=== PATIENT | female | born 1975 | race Caucasian/White ===

== ENCOUNTER 2017-08-03 10:35 | Emergency (ER) | payer MEDICAID ==
[~2017-08-03] VITALS: Ht 172.7 cm; Wt 54.0 kg
[2017-08-03 11:07] LABS: Urine WBC None Seen /hpf (0 - 5)
[2017-08-03 11:31] LABS: Urine Bacteria FEW /hpf (None Seen); Urine Blood Negative /uL (Negative); Urine Mucus FEW (None Seen); Urine Specific Gravity 1.035 (1.001-1.035)
[2017-08-03 11:58] LABS: Basophils # (auto) 0 uL; Basophils % (auto) 0.1 % (0.0-2.0); Eosinophils # (auto) 0 uL; Eosinophils % (auto) 0.2 % (0.0-7.0); Hematocrit 40.6 % (36.0-46.0); Lymphocytes # (auto) 1.1 uL; Lymphocytes % (auto) 15.3 % (10.0-50.0); Mean Corpuscular Hgb Conc. 34.5 g/dL (32.0-36.0); Mean Corpuscular Volume 87.2 fL (80.0-100.0); Monocytes # (auto) 0.4 uL; Monocytes % (auto) 5.4 % (0.0-12.0); Neutrophils # (auto) 5.6 uL; Nucleated Red Blood Cells % 0.1 %; Platelet Count (auto) 152 10^3/uL (140-450); Red Blood Cells 4.65 10^6/uL (4.0-5.20); Red Cell Distribution Width 13.5 % (11.8-14.3); White Blood Cell 7.1 10^3/uL (4.4-10.8)
[2017-08-03 12:18] LABS: Albumin 3.6 g/dL (3.4-5.0); BUN/Creatinine Ratio 32.7; Bilirubin, Total 0.3 mg/dL (0.2-1.0); Calcium 8.4 mg/dL (8.5-10.1); Potassium 3.5 mmol/L (3.5-5.1); Total Protein 7.1 g/dL (6.4-8.2)
[2017-08-03 13:13] VITALS: BP 105/54
== END 2017-08-03 14:56 | disposition home or self-care (01) ==
LOC: ER 10:35
DX: J40 Bronchitis, not specified as acute or chronic (principal); J06.9 Acute upper respiratory infection, unspecified
CPT/HCPCS: 36415; 71046; 80053; 81001; 85025; 87804

== ENCOUNTER → 2020-01-27 | Emergency (ER) | payer MEDICAID ==
[~2020-01-27] VITALS: Ht 172.7 cm; Wt 54.0 kg
[~2020-01-27] MED LIST: KETOROLAC TROMETH 30 MG/ML 1ML VIAL IV ONE; ONDANSETRON HCL 4 MG/2 ML VIAL IV ONE; SODIUM CHLORIDE 0.9% 1,000 ML IVB ONE; cefTRIAXone 1GM/50ML D5W 50 ML IV ONE
[2020-01-27 12:52] LABS: Urine Bacteria NONE SEEN /hpf (None Seen); Urine Blood Negative /uL (Negative); Urine Mucus FEW (None Seen); Urine Specific Gravity 1.024 (1.001-1.035); Urine WBC 24 /hpf (0 - 5)
[2020-01-27 13:21] LABS: Basophils # (auto) 0 10 ^3/uL (0-0.2); Basophils % (auto) 0.2 % (0.0-2.0); Eosinophils # (auto) 0 10 ^3/uL (0-0.8); Eosinophils % (auto) 0.1 % (0.0-7.0); Hematocrit 38.2 % (36.0-46.0); Hemoglobin 12.7 g/dL (12.2-16.2); Lymphocytes # (auto) 0.8 10 ^3/uL (0.4-5.4); Lymphocytes % (auto) 10.8 % (10.0-50.0); Mean Corpuscular Hemoglobin 28.7 pg (28.0-32.0); Mean Corpuscular Hgb Conc. 33.4 g/dL (32.0-36.0); Mean Corpuscular Volume 86.1 fL (80.0-100.0); Monocytes # (auto) 0.6 10 ^3/uL (0-1.3); Monocytes % (auto) 7.5 % (0.0-12.0); Neutrophils # (auto) 6.1 10 ^3/uL (1.6-8.6); Neutrophils % (auto) 81.4 % (37.0-80.0); Nucleated Red Blood Cells % 0.1 %; Platelet Count (auto) 237 10^3/uL (140-450); Red Blood Cells 4.43 10^6/uL (4.0-5.20); Red Cell Distribution Width 13.6 % (11.8-14.3); White Blood Cell 7.5 10^3/uL (4.4-10.8)
[2020-01-27 13:35] LABS: Albumin 3.5 g/dL (3.4-5.0); Anion Gap 6 (5-15); Blood Urea Nitrogen 18 mg/dL (7-18); Calcium 8.3 mg/dL (8.5-10.1); Carbon Dioxide 23 mmol/L (21-32); Chloride 110 mmol/L (98-107); Glucose 102 mg/dL (74-106); Lipase 92 U/L (73-393); Magnesium 2.4 mg/dL (1.6-2.6); Potassium 3.5 mmol/L (3.5-5.1); Sodium 139 mmol/L (136-145)
[2020-01-27 13:42] LABS: Alanine Aminotransferase 26 U/L (13-56); Alkaline Phosphatase 37 U/L (45-117); Aspartate Aminotransferase 14 U/L (15-37); Bilirubin, Total 0.7 mg/dL (0.2-1.0); GFR African American 174 mL/min; GFR Non-African American 144 mL/min; Total Protein 6.6 g/dL (6.4-8.2)
[2020-01-27 17:52] VITALS: BP 103/57
== END | disposition home or self-care (01) ==
LOC: ER 11:42
DX: N39.0 Urinary tract infection, site not specified (principal); N20.0 Calculus of kidney; N85.8 Other specified noninflammatory disorders of uterus
CPT/HCPCS: 36415; 71045; 74176; 76830; 76856; 80053; 81001; 81025; 83690; 83735; 84484; 85025; 96361; 96365; 96366; 96375; 96376; 99285; J0696; J1885; J2405

== ENCOUNTER 2022-08-22 10:36 | Emergency (ER) | payer MEDICAID ==
[~2022-08-22] VITALS: Ht 172.7 cm; Wt 54.5 kg
[~2022-08-22 10:36] MED LIST changes: +HYDR-4902 PO; -KETOROLAC TROMETH 30 MG/ML 1ML VIAL IV ONE; -ONDANSETRON HCL 4 MG/2 ML VIAL IV ONE; -SODIUM CHLORIDE 0.9% 1,000 ML IVB ONE; -cefTRIAXone 1GM/50ML D5W 50 ML IV ONE
[2022-08-22 10:40] VITALS: BP 107/70
[2022-08-22 11:28] LABS: Basophils # (auto) 0 10 ^3/uL (0-0.2); Basophils % (auto) 0.7 % (0.0-2.0); Eosinophils # (auto) 0.1 10 ^3/uL (0-0.8); Eosinophils % (auto) 1.6 % (0.0-7.0); Hematocrit 44.2 % (36.0-46.0); Hemoglobin 14.9 g/dL (12.2-16.2); Lymphocytes # (auto) 1.4 10 ^3/uL (0.4-5.4); Lymphocytes % (auto) 25.2 % (10.0-50.0); Mean Corpuscular Hemoglobin 29.1 pg (28.0-32.0); Mean Corpuscular Hgb Conc. 33.8 g/dL (32.0-36.0); Mean Corpuscular Volume 85.9 fL (80.0-100.0); Monocytes # (auto) 0.3 10 ^3/uL (0-1.3); Monocytes % (auto) 5.7 % (0.0-12.0); Neutrophils # (auto) 3.8 10 ^3/uL (1.6-8.6); Neutrophils % (auto) 66.8 % (37.0-80.0); Nucleated Red Blood Cells % 0.1 %; Red Blood Cells 5.14 10^6/uL (4.0-5.20); Red Cell Distribution Width 13.3 % (11.8-14.3); White Blood Cell 5.6 10^3/uL (4.4-10.8)
[2022-08-22 11:44] LABS: INR 1.01 (0.9-1.15); Partial Thromboplastin Time 26.2 sec (24.6-33.4)
[2022-08-22 11:45] LABS: Albumin 3.6 g/dL (3.4-5.0); Calcium 8.5 mg/dL (8.5-10.1); Magnesium 2.4 mg/dL (1.6-2.6); Potassium 4.3 mmol/L (3.5-5.1)
[2022-08-22 11:49] LABS: BUN/Creatinine Ratio 38.2 (10.0-20.0); Bilirubin, Total 0.4 mg/dL (0.2-1.0)
[2022-08-22 11:51] LABS: Urine Bacteria NONE SEEN /hpf (None Seen); Urine Blood Negative /uL (Negative); Urine Mucus FEW (None Seen); Urine Specific Gravity 1.027 (1.001-1.035); Urine WBC 2 /hpf (0 - 5)
[2022-08-22 11:55] LABS: Alcohol, Urine < 3.0 mg/dL (0-10); Amphetamine Screen, Urine NEGATIVE (NEGATIVE); Barbiturate Scree,Urine NEGATIVE (NEGATIVE); Benzodiazephine Screen, Urine NEGATIVE (NEGATIVE); Cannabinoid Screen, Urine NEGATIVE (NEGATIVE); Cocaine Screen, Urine NEGATIVE (NEGATIVE); Opiate Scree,Urine NEGATIVE (NEGATIVE); Phencyclidine Screen, Urine NEGATIVE (NEGATIVE)
== END 2022-08-22 13:51 | disposition home or self-care (01) ==
LOC: ER 10:36
DX: R00.2 Palpitations (principal); Z79.899 Other long term (current) drug therapy
CPT/HCPCS: 36415; 71045; 80053; 80307; 81001; 83735; 83880; 84443; 84484; 85025; 85610; 85730; 93005

== ENCOUNTER 2022-10-25 10:51 | Emergency (ER) | payer MEDICAID ==
[~2022-10-25] VITALS: Ht 172.7 cm; Wt 60.8 kg
[2022-10-25 11:51] VITALS: BP 107/73
[2022-10-25] MEDS ORDERED: IPRATROPIUM BROM 0.5 MG/2.5ML INH SOL NEB ONE (12:30)
[2022-10-25] MEDS ORDERED: DexAMETHasone SOD PHOS 10MG/1ML VIAL INJ IM ONE (12:30)
[2022-10-25] MEDS ORDERED: ALBUTEROL SULF 2.5 MG/0.5ML(0.5%) NEB SOLN NEB ONE (12:30)
[2022-10-25] MEDS ORDERED: PRED20TA2 PO (13:09)
[2022-10-25] MEDS ORDERED: PROM1SOL4 PO (13:09)
[2022-10-25] MEDS ORDERED: ALBU108A5 IN (13:11)
== END 2022-10-25 14:49 | disposition home or self-care (01) ==
LOC: ER 10:51
DX: J40 Bronchitis, not specified as acute or chronic (principal)
CPT/HCPCS: 71045; 94640; 96372; 99283; J1100; J7644

== ENCOUNTER 2023-09-12 03:40 | Emergency (ER) | payer MEDICAID ==
[~2023-09-12] VITALS: Ht 172.7 cm; Wt 63.1 kg
[~2023-09-12 03:40] MED LIST changes: +ALBU108A5 IN; +PRED20TA2 PO; +PROM1SOL4 PO
[2023-09-12 04:24] LABS: Basophils # (auto) 0 10 ^3/uL (0-0.2); Basophils % (auto) 0.3 % (0.0-2.0); Eosinophils # (auto) 0.1 10 ^3/uL (0-0.8); Eosinophils % (auto) 0.9 % (0.0-7.0); Hematocrit 44.2 % (36.0-46.0); Hemoglobin 14.9 g/dL (12.2-16.2); Mean Corpuscular Hgb Conc. 33.6 g/dL (32.0-36.0); Mean Corpuscular Volume 86.3 fL (80.0-100.0); Monocytes # (auto) 0.4 10 ^3/uL (0-1.3); Monocytes % (auto) 3.9 % (0.0-12.0); Neutrophils # (auto) 6.4 10 ^3/uL (1.6-8.6); Neutrophils % (auto) 64.9 % (37.0-80.0); Nucleated Red Blood Cells % 0.1 %; Red Blood Cells 5.13 10^6/uL (4.0-5.20); Red Cell Distribution Width 13.7 % (11.8-14.3); White Blood Cell 9.9 10^3/uL (4.4-10.8)
[2023-09-12 04:32] LABS: Chloride 109 mmol/L (98-107); Potassium 3.5 mmol/L (3.5-5.1); Sodium 140 mmol/L (136-145)
[2023-09-12 04:33] LABS: Anion Gap 6 (5-15); Calcium 9.2 mg/dL (8.7-10.4); Carbon Dioxide 25 mmol/L (20-30)
[2023-09-12 04:38] LABS: BUN/Creatinine Ratio 22.2 (10.0-20.0); Blood Urea Nitrogen 14 mg/dL (9-23); Glucose 101 mg/dL (74-106)
[2023-09-12 04:39] LABS: Magnesium 2.2 mg/dL (1.6-2.6)
[2023-09-12 07:54] LABS: Beta HCG, Quantitative 0.8 mIU/mL (1.5-4.2)
[2023-09-12 07:55] LABS: Thyroid Stimulating Hormone 3.92 uIU/mL (0.55-4.78)
[2023-09-12 08:35] VITALS: PULSE 74; RESP 15; O2SAT 98
[2023-09-12 08:38] VITALS: BP 102/60; PULSE 74; RESP 15; TEMP 97.7; O2SAT 98
== END 2023-09-12 08:26 | disposition home or self-care (01) ==
LOC: ER 03:40
DX: I47.10 Supraventricular tachycardia, unspecified (principal); R10.2 Pelvic and perineal pain; Z32.02 Encounter for pregnancy test, result negative
CPT/HCPCS: 36415; 80048; 83735; 84443; 84484; 84702; 85025; 85379; 93005

== ENCOUNTER 2025-01-13 10:22 | Emergency (ER) | payer MEDICAID, OTHER ==
[~2025-01-13] VITALS: Ht 172.7 cm; Wt 64.4 kg
[2025-01-13 10:24] VITALS: BP 107/68; PULSE 73; RESP 16; TEMP 98; O2SAT 98
== END 2025-01-13 10:33 | disposition left against medical advice (07) ==
LOC: ER 10:22
DX: R10.31 Right lower quadrant pain (principal); Z53.21 Procedure and treatment not carried out due to patient leaving prior to being seen by health care provider